=== PATIENT | female | born 1960 | race Caucasian/White ===

== ENCOUNTER → 2019-02-05 | Outpatient (CLI) | payer BC ==
--- NOTE | 2019-02-05 15:45 | KCIC ---
Thyroid ultrasound 02/05/2019 INDICATION: Enlarged thyroid COMPARISON: None available TECHNIQUE: Sonographic evaluation of the thyroid gland was performed utilizing grayscale and color Doppler. FINDINGS: The right thyroid lobe measures 4.1 x 1.1 x 1.6 cm. Left thyroid lobe measures 3.2 x 1.1 x 1.7 cm. Thyroid gland is homogeneous in echotexture. No suspicious thyroid mass is identified. Thyroid isthmus is normal in appearance measuring 1.8 mm. No significant hyperemia is identified. IMPRESSION: Normal appearance of the thyroid gland. Electronically signed by: Nina Taylor MD (02/05/2019 3:42 PM) [id number]
== END | disposition home or self-care (01) ==
LOC: KCIC US 14:34
PROVIDERS: ATTEND Nurse Practitioner Family
DX: E04.8 Other specified nontoxic goiter (principal)
CPT/HCPCS: 76536